=== PATIENT | female | born 1955 ===

== ENCOUNTER 2016-11-23 19:14 | Emergency (ER) | payer MEDICAID ==
[2016-11-23 19:20] VITALS: BP 158/68; PULSE 68; RESP 16; TEMP 98.5; O2SAT 100
[2016-11-23] MEDS ORDERED: Amoxicillin-Clav 875-125 mg Tab PO STA (19:39)
--- NOTE | 2016-11-23 19:43 | ED PDOC ---
HPI: General Adult Time Seen by Provider: 11/23/16 19:24 Chief Complaint (Nursing): Abnormal Skin Integrity Chief Complaint (Provider): Left ear pain History Per: Patient Onset/Duration Of Symptoms: Days (15) Current Symptoms Are (Timing): Still Present Severity: Moderate Additional Complaint(s): Sulema Cleaning is a 61 y/o female presenting to the ER pm 11/23/2016 with complaints of left ear pain x15 days. Ear pain, which radiates down to the base of her neck, is associated with throat pain but not accompanied by fever or chills. Patient reports she is able to tolerate liquids and solids. She has been taking Tylenol with no improvement in pain. Past Medical History Reviewed: Historical Data, Nursing Documentation, Vital Signs Vital Signs: Last Vital Signs Temp 98.5 F 11/23/16 19:17 Pulse 68 11/23/16 19:17 Resp 16 11/23/16 19:17 BP 158/68 H 11/23/16 19:17 Pulse Ox 100 11/23/16 19:47 - Medical History PMH: Diabetes, HTN, Hypothyroidism - Surgical History Other surgeries: cyst removal x3 in her right breast - Family History Family History: States: No Known Family Hx - Living Arrangements Living Arrangements: With Family - Social History Current smoker - smoking cessation education provided: No Alcohol: None Drugs: Denies - Home Medications Home Medications: Ambulatory Orders Medication Instructions Recorded Atenolol [Tenormin] 50 mg PO DAILY #0 tab 03/22/15 Atorvastatin [Lipitor] 40 mg PO DAILY #0 tab 03/22/15 Cholecalciferol [Vitamin D 1000 IU] 5,000 iu PO SUN #0 tab 03/22/15 Docusate [Colace] 100 mg PO BID PRN #0 cap 03/22/15 Levothyroxine Sodium [Synthroid] 0.125 mg PO DAILY #0 tab 03/22/15 Losartan/Hydrochlorothiazide 25 - 100 mg PO DAILY #0 tab 03/22/15 [Hyzaar 100-25 Tablet] MetFORMIN [glucoPHAGE] 1,000 mg PO BID #0 tab 03/22/15 SITagliptin [Januvia] 50 mg PO HS #0 tab 03/22/15 amLODIPine [Norvasc] 5 mg PO DAILY #0 tab 03/22/15 Albuterol HFA [Ventolin HFA 90 2 puff IH [id number] #1 inh 11/20/15 mcg/actuation (8 g)] Azithromycin [Zithromax Z-Barrie] 250 mg PO DAILY #1 packet 11/20/15 Amoxicillin/Clavulanate [Augmentin 1 tab PO BID #14 tab 11/23/16 875 MG-125 MG] Ibuprofen [Motrin] 600 mg PO Q6 PRN #15 tab 11/23/16 - Allergies Allergies/Adverse Reactions: Allergies Allergy/AdvReac Type Severity Reaction Status Date / Time No Known Allergies Allergy Verified 03/21/15 22:06 Review of Systems ROS Statement: Except As Marked, All Systems Reviewed And Found Negative Constitutional: Negative for: Fever, Chills ENT: Positive for: Ear Pain, Throat Pain Musculoskeletal: Positive for: Neck Pain Neurological: Negative for: Headache, Dizziness Physical Exam - Reviewed Nursing Documentation Reviewed: Yes Vital Signs Reviewed: Yes - Physical Exam Appears: Positive for: Non-toxic, No Acute Distress Head Exam: Positive for: ATRAUMATIC, NORMOCEPHALIC Skin: Positive for: Normal Color. Negative for: Rash Eye Exam: Positive for: Normal appearance, EOMI, PERRL ENT: Positive for: Pharynx Is (clear), TM Is/Are (right TM wnl; left demonstrated bulging TM with erythema and obscured landmarks ), Other ((-) mastoid tenderness ). Negative for: Pharyngeal Erythema, Tonsillar Exudate, Tonsillar Swelling Neck: Positive for: Normal, Painless ROM, Supple. Negative for: Pain On Movement Of Neck Cardiovascular/Chest: Positive for: Regular Rate, Rhythm Respiratory: Positive for: Normal Breath Sounds. Negative for: Wheezing, Respiratory Distress Lymphatic: Positive for: Adenopathy (Left pre and post auricular LAD) Neurologic/Psych: Positive for: Alert, Oriented. Negative for: Motor/Sensory Deficits - ECG O2 Sat by Pulse Oximetry: 100 Pulse Ox Interpretation: Normal Medical Decision Making Medical Decision Makin:24 Initial Impression- 61 y/o female with Otitis Media Initial Plan- * Augmentin 875 mg 1 tab PO * Motrin 600 mg PO Prescriptions given for Augmentin and Motrin. Patient was advised to follow-up in 2-3 days with clinic. Documented by Renae Steele, acting as a scribe for Kamille Amsellem, PA-C All medical record entries made by the Scribe were at my direction and personally dictated by me. I have reviewed the chart and agree that the record accurately reflects my personal performance of the history, physical exam, medical decision making, and the department course for this patient. I have also personally directed, reviewed, and agree with the discharge instructions and disposition. Disposition - Clinical Impression Clinical Impression: Otitis media - Patient ED Disposition Is Patient to be Admitted: No Counseled Patient/Family Regarding: Diagnosis, Need For Followup, Rx Given - Disposition Referrals: [facility] [Outside] Disposition: Routine/Home Disposition Time: 20:10 Condition: STABLE Additional Instructions: Take prescription medications as directed. Follow-up with primary doctor in 2-3 days. Prescriptions: Amoxicillin/Clavulanate [Augmentin 875 MG-125 MG] 1 tab PO BID #14 tab Ibuprofen [Motrin] 600 mg PO Q6 PRN #15 tab PRN Reason: Pain, Moderate (4-7) Instructions: Otitis Media (ED) Print Language: GREENLANDIC
[2016-11-23] MEDS ORDERED: Amoxicillin-Clav 875-125 mg Tab PO ONE (19:52)
== END 2016-11-23 20:30 | disposition home or self-care (01) ==
LOC: H.ER 19:14
DX: H66.92 Otitis media, unspecified, left ear (principal); I10 Essential (primary) hypertension

== ENCOUNTER 2017-07-25 13:08 | Emergency (ER) | payer MEDICAID ==
[2017-07-25] MEDS ORDERED: Promethazine DM 12.5 mg-30 mg/10 ml Syrup PO STA (14:23)
--- NOTE | 2017-07-25 14:24 | ED PDOC ---
HPI: General Adult Time Seen by Provider: 07/25/17 13:48 Chief Complaint (Nursing): Flu-like Symptoms Chief Complaint (Provider): Flu-Like Symptoms History Per: Patient History/Exam Limitations: no limitations Onset/Duration Of Symptoms: Days (X2) Have you had recent travel within the past 21 days to any of the following countries: [place], [place], [place] or [place]?: No Current Symptoms Are (Timing): Still Present Severity: Moderate Additional Complaint(s): 61 year old female presents to ED with complaints of flu-like symptoms x2 days and has a past medical history of HTN, DM(controlled), hypercholesterolemia, and hypothyroidism. Patient reports she is compliant with her medications at home. Patient reports(+) cough, body aches, bilateral ear pain, sore throat, fever, and chest pain exclusively with coughing episodes. (-) abdominal pain (- ) nausea (-) vomiting (-) rash (-) SOB (-) dyspnea (-) lower extremity swelling (-) diaphoresis (-) jaw or arm pain (-) exertional component (-) positional component. Notes taking Coricidin HBP last night, however no medications were taken prior to arrival today. Confirms receiving the flu vaccine this flu season. PCP: Dr. Salvador Past Medical History Reviewed: Historical Data, Nursing Documentation, Vital Signs Vital Signs: Last Vital Signs Temp 99.4 F 07/25/17 16:14 Pulse 71 07/25/17 16:14 Resp 18 07/25/17 16:14 BP 130/70 07/25/17 16:14 Pulse Ox 100 07/25/17 22:05 - Medical History PMH: Diabetes, HTN, Hypothyroidism Denies: HIV, Chronic Kidney Disease - Family History Family History: States: Unknown Family Hx - Living Arrangements Living Arrangements: With Family - Social History Current smoker - smoking cessation education provided: No Ex-Smoker (has not smoked in the last 12 months): No Alcohol: None Drugs: Denies - Immunization History Hx Influenza Vaccination: Yes - Home Medications Home Medications: Ambulatory Orders Medication Instructions Recorded Atenolol [Tenormin] 50 mg PO DAILY #0 tab 03/22/15 Atorvastatin [Lipitor] 40 mg PO DAILY #0 tab 03/22/15 Cholecalciferol [Vitamin D 1000 IU] 5,000 iu PO SUN #0 tab 03/22/15 Docusate [Colace] 100 mg PO BID PRN #0 cap 03/22/15 Levothyroxine Sodium [Synthroid] 0.125 mg PO DAILY #0 tab 03/22/15 Losartan/Hydrochlorothiazide 25 - 100 mg PO DAILY #0 tab 03/22/15 [Hyzaar 100-25 Tablet] MetFORMIN [glucoPHAGE] 1,000 mg PO BID #0 tab 03/22/15 SITagliptin [Januvia] 50 mg PO HS #0 tab 03/22/15 amLODIPine [Norvasc] 5 mg PO DAILY #0 tab 03/22/15 Albuterol HFA [Ventolin HFA 90 2 puff IH [id number] #1 inh 11/20/15 mcg/actuation (8 g)] Azithromycin [Zithromax Z-Barrie] 250 mg PO DAILY #1 packet 11/20/15 Amoxicillin/Clavulanate [Augmentin 1 tab PO BID #14 tab 11/23/16 875 MG-125 MG] Ibuprofen [Motrin] 600 mg PO Q6 PRN #15 tab 11/23/16 Acetaminophen [Acetaminophen 8 650 mg PO TID PRN #20 tablet.er 07/25/17 Hour] Benzonatate [Tessalon Perles] 100 mg PO TID PRN #18 sgl 07/25/17 Ibuprofen [Motrin] 600 mg PO TID #20 tab 07/25/17 Oseltamivir [Tamiflu] 75 mg PO BID #10 cap 07/25/17 - Allergies Allergies/Adverse Reactions: Allergies Allergy/AdvReac Type Severity Reaction Status Date / Time No Known Allergies Allergy Verified 07/25/17 13:27 Review of Systems ROS Statement: Except As Marked, All Systems Reviewed And Found Negative Constitutional: Positive for: Fever, Other ((+) body aches) ENT: Positive for: Ear Pain (bilateral), Throat Pain Cardiovascular: Positive for: Chest Pain (secondary to cough) Respiratory: Positive for: Cough Gastrointestinal: Negative for: Abdominal Pain Physical Exam - Reviewed Nursing Documentation Reviewed: Yes Vital Signs Reviewed: Yes - Physical Exam Appears: Positive for: Well, Non-toxic, No Acute Distress Head Exam: Positive for: NORMOCEPHALIC Skin: Positive for: Normal Color, Warm, Dry Eye Exam: Positive for: Normal appearance, EOMI, PERRL. Negative for: Nystagmus , Conjunctival injection ENT: Positive for: TM Is/Are (clear bilaterally, nonbulging (-) erythema), Pharyngeal Erythema, Other ((-) nasal flaring). Negative for: Sinus Pain/ Drainage, Nasal Congestion, Tonsillar Exudate, Tonsillar Swelling Neck: Positive for: Painless ROM, Supple Cardiovascular/Chest: Positive for: Regular Rate, Rhythm. Negative for: Murmur Respiratory: Positive for: Normal Breath Sounds, Other (respirations even and nonlabored, speaking in full sentences). Negative for: Decreased Breath Sounds , Accessory Muscle Use, Crackles, Rales, Rhonchi, Stridor, Wheezing, Respiratory Distress Gastrointestinal/Abdominal: Positive for: Normal Exam, Soft. Negative for: Tenderness Back: Negative for: Vertebral Tenderness Extremity: Negative for: Tenderness, Swelling Neurologic/Psych: Positive for: Alert, Oriented, Mood/Affect (appropriate), Gait (steady). Negative for: Motor/Sensory Deficits - ECG O2 Sat by Pulse Oximetry: 100 (RA) Pulse Ox Interpretation: Normal Medical Decision Making Medical Decision Makin Initial impression: fever, cough, body aches, throat pain, ear pain - likely viral illness Initial plan: * CXR * Throat Cx * Influenza A B * Rapid strep * Ibuprofen 600mg PO * Promethazine 12.5mg PO * Re-eval 1452 CXR FINDINGS: LINES AND TUBES: None. LUNG AND PLEURA: The lungs are well inflated and clear. HEART AND MEDIASTINUM: The heart is not enlarged. The hilar and mediastinal contours are within normal limits. SKELETAL STRUCTURES: The bony structures are within normal limits for the patient's age. VISUALIZED UPPER ABDOMEN: Normal. OTHER FINDINGS: None. IMPRESSION: No active pulmonary disease. 1534 Patient is flu positive. Will receive dose of Tamiflu and Tylenol in ED. Prescription for Tamiflu and Tylenol will be given as well. Repeat temp:99.4 oral. Stable for discharge and outpatient follow up in 1-2 days without fail. Return to ED With any new or worsening symptoms. Scribe Attestation: Documented by Brenda Raza, acting as a scribe for Yuly Walsh PA-C. Provider Scribe Attestation: All medical record entries made by the Scribe were at my direction and personally dictated by me. I have reviewed the chart and agree that the record accurately reflects my personal performance of the history, physical exam, medical decision making, and the department course for this patient. I have also personally directed, reviewed, and agree with the discharge instructions and disposition. Disposition - Clinical Impression Clinical Impression: Fever and chills, Influenza B, Cough, Body aches - Patient ED Disposition Is Patient to be Admitted: No - Disposition Disposition: Routine/Home Disposition Time: 16:22 Condition: STABLE Prescriptions: Acetaminophen [Acetaminophen 8 Hour] 650 mg PO TID PRN #20 tablet.er PRN Reason: Fever >100.4 F Benzonatate [Tessalon Perles] 100 mg PO TID PRN #18 sgl PRN Reason: Cough Ibuprofen [Motrin] 600 mg PO TID #20 tab Oseltamivir [Tamiflu] 75 mg PO BID #10 cap Instructions: Fever in Adults (ED), Influenza (ED) Forms: [facility] (Eth[place]ian) Print Language: CITIZEN OF [place]
[2017-07-25] MEDS ORDERED: Promethazine 6.25 MG/5 ML CUP ONE (14:31)
[2017-07-25] MEDS ORDERED: Promethazine 6.25 MG/5 ML CUP PO STA (14:39)
--- NOTE | 2017-07-25 14:53 | RAD ---
HISTORY: COMPARISON: 11/20/2015. TECHNIQUE: Chest PA and lateral FINDINGS: LINES AND TUBES: None. LUNG AND PLEURA: The lungs are well inflated and clear. HEART AND MEDIASTINUM: The heart is not enlarged. The hilar and mediastinal contours are within normal limits. SKELETAL STRUCTURES: The bony structures are within normal limits for the patient's age. VISUALIZED UPPER ABDOMEN: Normal. OTHER FINDINGS: None. IMPRESSION: No active pulmonary disease.
[2017-07-25 15:51] VITALS: RESP 18
[2017-07-25 16:15] VITALS: BP 130/70; PULSE 71; TEMP 99.4
[2017-07-25 16:30] VITALS: O2SAT 100
== END 2017-07-25 17:18 | disposition home or self-care (01) ==
LOC: H.ER 13:08
DX: J10.1 Influenza due to other identified influenza virus with other respiratory manifestations (principal); E11.9 Type 2 diabetes mellitus without complications; Z79.84 Long term (current) use of oral hypoglycemic drugs; E03.9 Hypothyroidism, unspecified; E78.00 Pure hypercholesterolemia, unspecified; I10 Essential (primary) hypertension